=== PATIENT | female | born 1950 | race Caucasian/White ===

== ENCOUNTER 2018-04-01 09:07 | Day surgery (SDC) | payer MEDICARE, OTHER ==
[~2018-04-01] VITALS: Ht 172.7 cm; Wt 96.6 kg
[~2018-04-01 09:07] MED LIST: ALPR.5 PO; ASPI81EC PO; CARI350; CARI350 PO; CRUTCH3 USE; CYCL10 PO; DICY20 PO; FOLI1 PO; FURO20 PO; HYDACE5 PO; HYDPAM25 PO; HYDPAM50 PO; IBUHYD PO; IBUP800; METTREX2.5 PO; NAPR500 PO; POTASSIUM CHLORIDE PO; PREG50 PO; PROACE100; PROM25 PO; Prilosec Otc20 MG PO; RXHYDACE PO; SPIR25 PO; VICOPROFEN PO; Zanaflex4 M1 PO
[2018-04-01] MEDS ORDERED: Norco 7.5-3251 EACH PO (09:59)
[2018-04-02 04:01] LABS: BASOPHILS ABSOLUTE AUTO 0.02 K/mm3 (0.00-0.23); BASOPHILS PERCENT AUTO 0 % (0-2); EOSINOPHILS PERCENT AUTO 0 % (0-6); Hematocrit 31.6 % (33.0-51.0); Hemoglobin 10.5 g/dL (11.5-16.0); IMMATURE GRAN ABSOLUTE AUTO 0.13 K/mm3 (0.00-0.10); IMMATURE GRAN PERCENT AUTO 1 % (0-1); LYMPHOCYTES ABSOLUTE AUTO 0.92 K/mm3 (0.84-5.20); LYMPHOCYTES PERCENT AUTO 5 % (21-46); MONOCYTES ABSOLUTE AUTO 0.84 K/mm3 (0.16-1.47); MONOCYTES PERCENT AUTO 5 % (4-13); Mean Corpuscular HGB 32.4 pg (26.0-34.0); Mean Corpuscular HGB Conc 33.2 g/dL (31.5-36.5); Mean Corpuscular Volume 98 fL (80-100); Mean Platelet Volume 9.9 fL (9.1-12.4); NEUTROPHILS ABSOLUTE AUTO 16.33 K/mm3 (1.96-9.15); NEUTROPHILS PERCENT AUTO 90 % (41-73); Platelet Count 240 K/mm3 (150-400); RDW Coefficient Variation 12.2 % (11.7-14.2); RDW Standard Deviation 43.8 fL (35.1-46.3); Red Blood Cell Count 3.24 M/mm3 (3.80-5.20); White Blood Cell Count 18.24 K/mm3 (4.00-11.30)
[2018-04-02 04:19] LABS: Anion Gap 9 mmol/L (6-16); Blood Urea Nitrogen 18 mg/dL (8-24); Bun/Creatinine Ratio 19.7 (12.0-20.0); CO2, Blood 26 mmol/L (21-32); Calcium, Blood 8.1 mg/dL (8.5-10.1); Chloride, Blood 104 mmol/L (98-108); Creatinine, Blood 0.91 mg/dL (0.40-1.00); Glomerular Filtration Rate >60 (60-); Glucose, Blood 142 mg/dL (70-99); Potassium, Blood 4.3 mmol/L (3.5-5.5); Sodium, Blood 139 mmol/L (136-145)
[2018-04-02] MEDS ORDERED: Percocet 5-3251 EACH PO (12:47)
[2018-04-02] MEDS ORDERED: ASPI325EC PO (12:49)
== END 2018-04-02 13:15 | disposition home or self-care (01) ==
LOC: ORSCMMR 09:07 → ORD 10:30 → ORSCMMR 10:30 → SURS 14:31 → ORSCMMR 04-02 13:15
PROVIDERS: Orthopaedic Surgery
PROC: 0SRD0JA Replacement of Left Knee Joint with Synthetic Substitute, Uncemented, Open Approach (ICD-10-PCS; principal; 2018-04-01 10:30)
DX: M17.12 Unilateral primary osteoarthritis, left knee (principal); Z23 Encounter for immunization; Z79.899 Other long term (current) drug therapy
CPT/HCPCS: 36415; 73560-LT; 80048; 85025; 86850; 86900; 86901; 88300; 90686; 97110; 97116; 97161; 97530; C1776; G0008; G8978; G8979; J0171; J0690; J0735; J1100; J1885; J2250; J2405; J2795; J7120; Q0163

== ENCOUNTER 2018-07-02 06:06 | Day surgery (SDC) | payer OTHER ==
[~2018-07-02] VITALS: Ht 172.7 cm; Wt 93.7 kg
[~2018-07-02 06:06] MED LIST changes: +ASPI325EC PO; +Clonazepam0.5 MG PO; +Cranberry400 MG PO; +Evening Primro500 M1 PO; +FISH OIL 1,0001 EAC1 PO; +Norco 7.5-3251 EACH PO; +Omeprazole20 M1 PO; +Percocet 5-3251 EACH PO
[2018-07-02] MEDS ORDERED: ESTR2 PO (06:53)
[2018-07-02] MEDS ORDERED: FURO20 (06:53)
[2018-07-02] MEDS ORDERED: POTCHL20ER (06:53)
[2018-07-02] MEDS ORDERED: SPIR25 (06:53)
[2018-07-02] MEDS ORDERED: HYDR1TAB94 (06:54)
[2018-07-02] MEDS ORDERED: Zanaflex2 M1 (06:54)
--- NOTE | 2018-07-02 06:59 | NUR ---
07/02/18 0659 Radha Valdovinos PATIENT C/O PAIN IN LEFT KNEE WHERE SHE HAD RECENT KNEE REPLACEMENT A PILLOW WAS PLACED UNDER KNEES FOR COMFORT
--- NOTE | 2018-07-02 09:29 | NUR ---
07/02/18 0929 Radha Atkinson AWAKE ALERT RESP UNLABORED, MED FENTANYL 25 MCG X 2 FOR FOOT PAIN
== END 2018-07-02 10:15 | disposition home or self-care (01) ==
LOC: ORSCSDS 06:06
PROVIDERS: Podiatrist Foot & Ankle Surgery
PROC: 0L8V0ZZ Division of Right Foot Tendon, Open Approach (ICD-10-PCS; principal; 2018-07-02 07:30)
PROC: 0QSN04Z Reposition Right Metatarsal with Internal Fixation Device, Open Approach (ICD-10-PCS; principal; 2018-07-02 07:30)
DX: M20.41 Other hammer toe(s) (acquired), right foot (principal); M20.61 Acquired deformities of toe(s), unspecified, right foot; I10 Essential (primary) hypertension; E03.9 Hypothyroidism, unspecified; Z79.899 Other long term (current) drug therapy
CPT/HCPCS: C1713; C1769; J0690; J1100; J1885; J2250; J2405; J3010; J7120

== ENCOUNTER 2018-10-22 08:06 | Day surgery (SDC) | payer OTHER ==
[~2018-10-22] VITALS: Ht 172.7 cm; Wt 93.9 kg
[~2018-10-22 08:06] MED LIST changes: +ESTR2 PO; +FURO20; +HYDR1TAB94; +POTCHL20ER; +SPIR25; +Zanaflex2 M1
== END 2018-10-22 11:31 | disposition home or self-care (01) ==
LOC: ORSCSDS 08:06
PROVIDERS: Podiatrist Foot & Ankle Surgery
PROC: 0SGQ04Z Fusion of Left Toe Phalangeal Joint with Internal Fixation Device, Open Approach (ICD-10-PCS; principal; 2018-10-22 10:00)
PROC: 0QSR04Z Reposition Left Toe Phalanx with Internal Fixation Device, Open Approach (ICD-10-PCS; principal; 2018-10-22 10:00)
PROC: 0SQN0ZZ Repair Left Metatarsal-Phalangeal Joint, Open Approach (ICD-10-PCS; principal; 2018-10-22 10:00)
PROC: 0QSP04Z Reposition Left Metatarsal with Internal Fixation Device, Open Approach (ICD-10-PCS; principal; 2018-10-22 10:00)
DX: M20.42 Other hammer toe(s) (acquired), left foot (principal); M21.612 Bunion of left foot; M21.6X2 Other acquired deformities of left foot; I10 Essential (primary) hypertension; E78.5 Hyperlipidemia, unspecified; Z79.899 Other long term (current) drug therapy
CPT/HCPCS: C1713; J0690; J1100; J1885; J2250; J2405; J2704; J3010; J7120

== ENCOUNTER 2024-01-20 08:11 | Day surgery (SDC) | payer OTHER ==
[2024-01-20] VITALS (9 sets, daily range): BP systolic 133–152; BP diastolic 68–84
[~2024-01-20] VITALS: Ht 167.6 cm; Wt 84.5 kg
[~2024-01-20 08:11] MED LIST changes: +Ativan1 MG PO; +B-12 COMPL1000 MCG/2 IM; +BUSP10 PO; +CeFAZolin Sodium 2,000 MG in NS 100 ML IV SCH; +EVENING PRIMR1300 MG; -Evening Primro500 M1 PO; +HYDSUL200 PO; +MELATONIN5 M1; +METO2.5; +MIRALAX17 GM PO; +NS 500 ML IV SCH; +Norco 7.5-3251 EACH; +TIZA4 PO
[2024-01-20] MEDS ORDERED: propofoL 20 ML IV ONE (09:12)
[2024-01-20] MEDS ORDERED: Bupivacaine 0.5% HCl 5 MG/ML 30MLVIAL ONE (09:32)
[2024-01-20] MEDS ORDERED: Ondansetron HCl 2 MG / ML 2ML Vial ONE (10:05)
[2024-01-20] MEDS ORDERED: Metoclopramide HCl 5MG / ML 2ML Vial ONE (10:05)
[2024-01-20] MEDS ORDERED: Dexamethasone Sod Phos 10 MG/ML 1ML VIAL ONE (10:05)
[2024-01-20] MEDS ORDERED: FentaNYL Citrate 50 MCG/ML 2 ML Injection ONE (10:06)
[2024-01-20] MEDS ORDERED: OxyCODONE 5 mg/Acetamin 325 mg TABLET PO PRN (10:55)
--- NOTE | 2024-01-20 11:57 | NUR ---
Discharge instructions reviewed with patient. Patient verbalizes understanding. Copy given to patient to take home. Mediport access materials placed in discharge folder. Dressings c/d/i. [facility] Pt wheeled from day surgery to consult room with care management. Patient States Post-Procedure ride home has been arranged. Discharged via wheelchair to private car for ride home.
== END 2024-01-20 11:55 | disposition home or self-care (01) ==
LOC: ORSCMMR 08:11 → ORD 09:45 → ORSCMMR 11:55
PROVIDERS: Surgery
PROC: 05HM33Z Insertion of Infusion Device into Right Internal Jugular Vein, Percutaneous Approach (ICD-10-PCS; principal; 2024-01-20 09:45)
PROC: B543ZZA Ultrasonography of Right Jugular Veins, Guidance (ICD-10-PCS; principal; 2024-01-20 09:45)
PROC: 0JH63WZ Insertion of Totally Implantable Vascular Access Device into Chest Subcutaneous Tissue and Fascia, Percutaneous Approach (ICD-10-PCS; principal; 2024-01-20 09:45)
DX: C80.0 Disseminated malignant neoplasm, unspecified (principal); K21.9 Gastro-esophageal reflux disease without esophagitis; J45.909 Unspecified asthma, uncomplicated; Z79.899 Other long term (current) drug therapy
CPT/HCPCS: 77001; A9270; C1788; J0690; J1100; J1642; J2405; J2704; J2765; J3010; J7040

== ENCOUNTER 2024-01-25 17:21 | Inpatient (IN) | payer OTHER ==
[~2024-01-25] VITALS: Ht 165.1 cm; Wt 86.0 kg
[~2024-01-25 17:21] MED LIST changes: -CeFAZolin Sodium 2,000 MG in NS 100 ML IV SCH; -NS 500 ML IV SCH
[2024-01-25] MEDS ORDERED: NS 1,000 ML IV ONE (17:30)
[2024-01-25] MEDS ORDERED: Ondansetron HCl 2 MG / ML 2ML Vial IV PRN (17:35)
[2024-01-25] MEDS ORDERED: HYDROmorphone HCl/Pf 1MG SYR IV ONE ×2 (18:10→23:05)
[2024-01-25 18:30] LABS: Albumin, Blood 3.1 g/dL (3.4-5.0); Albumin/Globulin Ratio 0.9 (0.8-1.8); Bilirubin, Total 3.5 mg/dL (0.1-1.0); Bun/Creatinine Ratio 15.6 (12.0-20.0); Calcium, Blood 8.8 mg/dL (8.5-10.1); Creatinine, Blood 1.41 mg/dL (0.40-1.00); Globulin, Blood 3.6 g/dL (2.2-4.0); Potassium, Blood 5.1 mmol/L (3.5-5.5); Total Protein, Blood 6.7 g/dL (6.4-8.2)
[2024-01-25] MEDS ORDERED: Mag Hydrox/AL Hydrox/Simeth 30 ML UDC PO ONE (19:00)
[2024-01-25 19:25] LABS: BASOPHILS ABSOLUTE AUTO 0.01 K/mm3 (0.00-0.23); BASOPHILS PERCENT AUTO 1 % (0-2); EOSINOPHILS ABSOLUTE AUTO 0.01 K/mm3 (0.00-0.68); EOSINOPHILS PERCENT AUTO 1 % (0-6); Hematocrit 35.6 % (33.0-51.0); Hemoglobin 11.2 g/dL (11.5-16.0); IMMATURE GRAN ABSOLUTE AUTO 0.01 K/mm3 (0.00-0.10); IMMATURE GRAN PERCENT AUTO 1 % (0-1); LYMPHOCYTES PERCENT AUTO 51 % (21-46); MONOCYTES PERCENT AUTO 29 % (4-13); Mean Corpuscular HGB 29.6 pg (26.0-34.0); Mean Corpuscular HGB Conc 31.5 g/dL (31.5-36.5); Mean Corpuscular Volume 94 fL (80-100); Mean Platelet Volume 10.2 fL (9.1-12.4); NEUTROPHILS ABSOLUTE AUTO 0.24 K/mm3 (1.96-9.15); NEUTROPHILS PERCENT AUTO 18 % (41-73); Platelet Count 177 K/mm3 (150-400); RDW Coefficient Variation 14.3 % (11.7-14.2); Red Blood Cell Count 3.78 M/mm3 (3.80-5.20); White Blood Cell Count 1.37 K/mm3 (4.00-11.30)
[2024-01-25] MEDS ORDERED: ALPRAZOLAM110 PO (19:30)
[2024-01-25] MEDS ORDERED: OXYC5 (19:31)
[2024-01-25] MEDS ORDERED: TIZA4 PO (19:31)
[2024-01-25 19:43] LABS: International Normalized Ratio 1.03
[2024-01-25] MEDS ORDERED: DEXA4 PO (20:42)
[2024-01-26] MEDS ORDERED: FLU VACC TS2024-25(6MOS UP)/PF 45 MCG/0.5 ML SYRINGE IM ONE (00:15)
[2024-01-26] MEDS ORDERED: Ondansetron HCl 2 MG / ML 2ML Vial IV PRN (00:15)
[2024-01-26] MEDS ORDERED: NS 1,000 ML IV ONE (00:15)
[2024-01-26] MEDS ORDERED: FentaNYL Citrate 50 MCG/ML 2 ML Injection IV PRN (00:15)
[2024-01-26] MEDS ORDERED: Ondansetron Odt8 MG MM (00:46)
[2024-01-26] MEDS ORDERED: METO2.5 PO (00:47)
[2024-01-26 01:20] VITALS: BP 152/79
[2024-01-26] MEDS ORDERED: Lactulose 200 GM/300 ML Enema 300ML BTL PR PRN (04:35)
[2024-01-26] MEDS ORDERED: Bisacodyl 10 MG Supp PR PRN (04:35)
[2024-01-26] MEDS ORDERED: HYDROmorphone HCl/Pf 1MG SYR IV ONE (04:40)
[2024-01-26 04:50] VITALS: BP 143/78
[2024-01-26 06:10] LABS: BASOPHILS ABSOLUTE AUTO 0.01 K/mm3 (0.00-0.23); BASOPHILS PERCENT AUTO 1 % (0-2); EOSINOPHILS ABSOLUTE AUTO 0.02 K/mm3 (0.00-0.68); EOSINOPHILS PERCENT AUTO 1 % (0-6); Hematocrit 32.8 % (33.0-51.0); Hemoglobin 10.5 g/dL (11.5-16.0); IMMATURE GRAN PERCENT AUTO 0 % (0-1); LYMPHOCYTES ABSOLUTE AUTO 0.64 K/mm3 (0.84-5.20); LYMPHOCYTES PERCENT AUTO 44 % (21-46); MONOCYTES ABSOLUTE AUTO 0.47 K/mm3 (0.16-1.47); MONOCYTES PERCENT AUTO 32 % (4-13); Mean Corpuscular HGB 29.4 pg (26.0-34.0); Mean Corpuscular Volume 92 fL (80-100); Mean Platelet Volume 11.1 fL (9.1-12.4); NEUTROPHILS ABSOLUTE AUTO 0.32 K/mm3 (1.96-9.15); NEUTROPHILS PERCENT AUTO 22 % (41-73); Platelet Count 160 K/mm3 (150-400); RDW Coefficient Variation 14.1 % (11.7-14.2); RDW Standard Deviation 47.1 fL (35.1-46.3); Red Blood Cell Count 3.57 M/mm3 (3.80-5.20); White Blood Cell Count 1.46 K/mm3 (4.00-11.30)
[2024-01-26 06:32] LABS: Albumin, Blood 2.8 g/dL (3.4-5.0); Albumin/Globulin Ratio 0.9 (0.8-1.8); Bilirubin, Total 2.8 mg/dL (0.1-1.0); Bun/Creatinine Ratio 16.5 (12.0-20.0); Calcium, Blood 9.2 mg/dL (8.5-10.1); Creatinine, Blood 1.27 mg/dL (0.40-1.00); Total Protein, Blood 5.8 g/dL (6.4-8.2)
--- NOTE | 2024-01-26 06:33 | NUR ---
Shift Summary Pt admitted to this from from ED for bowel obstruction. She reportedly has not had a BM in over 1 week and has hand N/V for the past few days. Her last episode of emesis was 01/24 in the AM, she describes it is clear in color. Her belly is distended at tight, it is somewhat tender in the RUQ. She has been medicated for pain and nausea since arriving, although her chronic back pain is far worse than her abdominal pain this AM. I called the hospitalist and got a one time order of 0.5 mg dilauded this AM. She has been NPO since arrival. No consults are ordered at this time. Pt is AOX4, 1 SBA to the BR, on tele running sinus rythm. Her skin is mildly jaundiced and her liver labs are elevated. Pt has stage 4 ovarian cancer and is rcving chemo treatment outpt. She has a recent hx of SC from 01/08.
[2024-01-26 07:06] LABS: BASOPHILS PERCENT MAN 0 % (0-2); EOSINOPHILS PERCENT MAN 0 % (0-6); LYMPHOCYTES ABSOLUTE MAN 0.64 K/mm3 (0.84-5.20); LYMPHOCYTES PERCENT MAN 44 % (21-46); MONOCYTES ABSOLUTE MAN 0.48 K/mm3 (0.16-1.47); MONOCYTES PERCENT MAN 33 % (4-13); NEUTROPHILS ABSOLUTE MAN 0.33 K/mm3 (1.96-9.15); SEG NEUTROPHILS PERCENT MAN 23 % (41-73); TOTAL CELLS COUNTED 100
[2024-01-26 07:12] VITALS: BP 163/82
[2024-01-26] MEDS ORDERED: Enoxaparin 40 MG/0.4 ML SYR SC SCH (09:00)
[2024-01-26] MEDS ORDERED: HYDROmorphone HCl/Pf 1MG SYR IV PRN (11:10)
[2024-01-26] MEDS ORDERED: Magnesium Citrate 300 ML BTL PO ONE (14:15)
[2024-01-26] MEDS ORDERED: NORTRIPTYLINE H2512 PO (15:00)
[2024-01-26 16:05] VITALS: BP 167/91
[2024-01-26] MEDS ORDERED: Sod Phosphate/Sod Biphosphate 132 ML BTL PR PRN (16:10)
[2024-01-26] MEDS ORDERED: Metoclopramide HCl 5MG / ML 2ML Vial IV PRN (16:15)
[2024-01-26] MEDS ORDERED: NS 1,000 ML IV SCH (17:00)
[2024-01-26 19:55] VITALS: BP 161/85
[2024-01-26] MEDS ORDERED: Calcium Carbonate 500 MG Tab Chew PO PRN (19:55)
[2024-01-26] MEDS ORDERED: Lidocaine 4% 1 Patch TOP SCH (22:55)
[2024-01-27 03:28] VITALS: BP 164/86
[2024-01-27 05:02] LABS: BASOPHILS ABSOLUTE AUTO 0.01 K/mm3 (0.00-0.23); BASOPHILS PERCENT AUTO 1 % (0-2); EOSINOPHILS ABSOLUTE AUTO 0.01 K/mm3 (0.00-0.68); EOSINOPHILS PERCENT AUTO 1 % (0-6); Hematocrit 35.1 % (33.0-51.0); Hemoglobin 11.7 g/dL (11.5-16.0); IMMATURE GRAN PERCENT AUTO 0 % (0-1); LYMPHOCYTES ABSOLUTE AUTO 0.56 K/mm3 (0.84-5.20); LYMPHOCYTES PERCENT AUTO 32 % (21-46); MONOCYTES ABSOLUTE AUTO 0.72 K/mm3 (0.16-1.47); MONOCYTES PERCENT AUTO 41 % (4-13); Mean Corpuscular HGB 30.1 pg (26.0-34.0); Mean Corpuscular HGB Conc 33.3 g/dL (31.5-36.5); Mean Corpuscular Volume 90 fL (80-100); Mean Platelet Volume 10.3 fL (9.1-12.4); NEUTROPHILS ABSOLUTE AUTO 0.46 K/mm3 (1.96-9.15); NEUTROPHILS PERCENT AUTO 26 % (41-73); Platelet Count 242 K/mm3 (150-400); RDW Coefficient Variation 14.5 % (11.7-14.2); RDW Standard Deviation 46.2 fL (35.1-46.3); Red Blood Cell Count 3.89 M/mm3 (3.80-5.20); White Blood Cell Count 1.76 K/mm3 (4.00-11.30)
[2024-01-27 05:24] LABS: Albumin, Blood 2.7 g/dL (3.4-5.0); Albumin/Globulin Ratio 0.8 (0.8-1.8); Bilirubin, Total 2.5 mg/dL (0.1-1.0); Calcium, Blood 9.1 mg/dL (8.5-10.1); Creatinine, Blood 0.86 mg/dL (0.40-1.00); Globulin, Blood 3.4 g/dL (2.2-4.0); Potassium, Blood 3.7 mmol/L (3.5-5.5); Total Protein, Blood 6.1 g/dL (6.4-8.2)
[2024-01-27 06:14] VITALS: BP 157/84
--- NOTE | 2024-01-27 06:31 | NUR ---
Shift Summary Pt had a fleet enema early in the shift and immediatly produced a large bowel movement. Pt also had a small-medium sized bowel movement this AM. This ends her 7+ day run of constipation. She has very painful chronic back pain, frequently medicated per emar. Tried repositioning and offered heating pad as well. Her BP was been elevated since yesterday morning around 162/85. Pt is still NPO and experiencing some nausea. Medicated per EMAR. She also had heartburn and rcvd Tums x1.
[2024-01-27 07:24] VITALS: BP 151/94
--- NOTE | 2024-01-27 10:33 | NUR ---
Spiritual Care Visit. Pt. is awake in bed when she welcomes my visit. Pt. is unsettled by the pain she is experiencing. Pt. verbalizes questions about whether she wants to continue with chemotherapy when she is discharged. Listen with empathy and a calming presence. Pt. is known to this cath lab technologist form the community. Consider matters of aguilar and hope. Pt. displayed evidence of awareness and engagement. The Pts. trademark "sense of humor" seemed to be absent. Prayed with Pt. 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 Pt. verbalized gratitude for the spiritual care visit. Will remain availble tothe Pt.
--- NOTE | 2024-01-27 13:01 | NUR ---
Met with pt and her daughters Pearl and Merlene. The patient reports her pain started back in Feb 2023. However, she was preoccupied at that time with her 's cancer diagnosis, hospice and subsequent in July 2023. She continued to have pain, but didn't address it for several more months until she finally had a biopsy and was diagnosed with cancer on Jan 06, 2024. She reports she began chemo 2 weeks ago, and is currently hospitalized with constipation, abdominal pain, PADMINI, elevated liver enzymes and dehydration. We discussed options, including continuing chemotherapy, but patient v/u that this is not curative at this point. She states she is seriously leaning toward comfort, and going home with hospice. However, she tells her daughters she wants to make sure they're ok with her choice. They are going to talk a while longer today, then make a decision.
[2024-01-27] MEDS ORDERED: HYDROmorphone HCl/Pf 1MG SYR IV PRN (13:50)
[2024-01-27 15:54] VITALS: BP 155/82
--- NOTE | 2024-01-27 18:36 | NUR ---
SHIFT SUMMARY PATIENT ALERT AND INTERACTIVE. PATIENT HAD MULTIPLE BOWEL MOVEMENTS TODAY. PATIENT UP IN CHAIR MOST OF THE DAY. PATIENT SPOKE WITH PALLIATIVE CARE. PATIENT VERBALIZING THAT SHE WILL TRANSITION TO HOSPICE BUT WANTED TO GIVE DAUGHTERS A CHANGE TO PROCESS. PATIENT CONTINUES TO BE MEDICATED FOR PAIN NEEDED.
[2024-01-27 19:23] VITALS: BP 167/93
[2024-01-28 05:46] VITALS: BP 144/78
--- NOTE | 2024-01-28 06:55 | NUR ---
SHIFT SUMMARY PT A&Ox4 AND PLEASANT. PT C/O BACK AND ABD PAIN T/O NIGHT. MEDICATED PER EMAR WITH GOOD EFFECT. PT DID HAVE ONE EPISODE OF SMALL EMESIS AFTER DRINKING BROTH. NS INFUSING AT 125ML/HR. FAMILY AT BEDSIDE AT START OF SHIFT. NO EVENTS ON TELE. VSS. BED IN LOWEST POSITION AND CALL LIGHT IN REACH.
[2024-01-28 07:31] VITALS: BP 152/73
[2024-01-28] MEDS ORDERED: FentaNYL Citrate 50 MCG/ML 2 ML Injection IV PRN (09:45)
[2024-01-28] MEDS ORDERED: HYDROmorphone HCl/Pf 1MG SYR IV PRN (12:05)
[2024-01-28] MEDS ORDERED: Promethazine HCl 25 MG Tab PO PRN ×2 (12:05→13:05)
[2024-01-28] MEDS ORDERED: Dexamethasone Sodium Phosphate 4 MG/ML 1ML Vial IV ONE (12:55)
--- NOTE | 2024-01-28 12:59 | NUR ---
MORNING VISIT @ [facility]0 ATTEMPTED GOALS OF CARE CONVERSATION. JUJU WAS NAUSEATED AND ASKED THIS PC RN TO COME BACK LATER. IN AN ATTEMPT TO LESSEN NAUSEA, PROVIDED MINT TEA FOR SIPPING AND AN ALCOHOL PAD TO SNIFF. REPORTED NAUSEA TO PRIMARY RN FOR ANTIEMETIC ADMINISTRATION. VISIT @ 1045 PT REPORST NAUSEA HAS SLIGHTLY IMPROVED. HOWEVER, NAUSEA HAS NOT RESOLVED. PT DECLINES ANY ADDITIONAL INTERVENTIONS AT THIS TIME. AROUND NOON, RCV'D CALL FROM PRIMARY RN, WHOM REPORTS NAUSEA HAS NOT IMPROVED AND NOW WITH GREEN/BILE EMESIS. THIS PC RN PHONED PHARMACY, COLLABORATED WITH NIKOS KIRBY ON MEDICATION INTERVENTIONS RE: PHARMACIST RECOMMENDATIONS FOR N/V SYMPTOM MANAGEMENT. NIKSO KIRBY, RECOMMENDED ONE TIME DOSE OF 4-20 MG DEXAMETHAZONE AND ADDING SCOPOLAMINE PATCH (24 HRS TO REACH PEAK ABSORPTION). RCV'D ORDERS FROM PROVIDER FOR 4 MG DEXAMETHASONE, ONE TIME AND SCOPOLAMINE PATCH NOW. ORDERS PLACED ACCORDINGLY. MET WITH PT TO REVIEW MEDICATIONS AND SYMPTOMS. PT VOICED SHE WOULD LIKE TO START ON COMFORT CARE NOW. PT ALSO GAVE PERMISSION FOR THIS PC RN TO CONTACT HER DTR'S WITH AN UPDATE ON PT'S DECISION TO FOCUS ON COMFORT AND HOSPICE. PROVIDER TO PLACE COMFORT CARE ORDERS. PT ASKED THIS PC RN TO UPDATE HER DTR SHAYNE WITH PT'S DECESION WITH COMFORT CARE AND GO HOME WITH HOSPICE. CALL PLACED TO SHAYNE, UPDATED PER PT REQUEST. SHAYNE IS PREPARING THE HOME FOR PT TO START HOSPICE. PT NOR FAMILY HAVE AN HOSPICE AGENCY PREFFERENCE. GENTLE EDUCATION RE: HOSPICE AND SERVICES PROVIDED. SHAYNE EXPRESSED GRATITUDE FOR THE CARE SHE IS CURRENTLY RECEIVING. DTSHAYNE Jefferson) [phone] LIVES LOCALLY [facility] [phone] LIVES OUT OF STATE DTKALYAN Jefferson (TRAINS DISPATCHER SUPERVISOR) UPDATES PROVIDED TO PRIMARY RN, PERSONAL DRIVER, BATCH MIXER
[2024-01-28] MEDS ORDERED: Scopolamine Hydrobromide Patch TD SCH (13:00)
[2024-01-28] MEDS ORDERED: LORazepam 1 MG Tab PO PRN (13:00)
[2024-01-28] MEDS ORDERED: Morphine Sulfate 20 MG/1ML 1 ML Oral Syringe SL PRN (13:05)
[2024-01-28] MEDS ORDERED: Promethazine HCl 25 MG Supp PR PRN (13:05)
[2024-01-28] MEDS ORDERED: Scopolamine Hydrobromide Patch TOP PRN (13:05)
[2024-01-28] MEDS ORDERED: Atropine Sulfate 1% Opth Soln 2ML BTL SL PRN (13:05)
[2024-01-28] MEDS ORDERED: Haloperidol Lactate 2 MG / ML 15ML BTL PO PRN (13:05)
--- NOTE | 2024-01-28 16:59 | NUR ---
Spiritual Care Visit - notice of comfort care Recieved notice that Pt. has made the decision for comfoprt care. Pt. is awake in bed when she welcomed my visit. Pt displayed evidence of being nauseous, and required to use her emesis bag. Pt. verbalized that at this time it would be her desire to be able to go home on hospice. Listen with empathy and a calming presence. Since she felt ill, I prayed for Pt. Pt. verbalized gratitude for the spiritual care visit.
[2024-01-28] MEDS ORDERED: Haloperidol Lactate 2 MG/ML Conc 1ML Dose PO PRN (18:35)
--- NOTE | 2024-01-28 19:02 | NUR ---
SHIFT SUMMARY PT A&OX4. PT ADMITTED DUE TO SBO. PT TRANSITIONED TO COMFORT CARE TODAY. PT HAS HAD NAUSEA AND VOMOITING THROUGHOUT THE LATER PORTION OF SHIFT, NO MEDICATIONS SEEM TO WORK. 5MG OF ROXINOL SEEMS TO BE ADEQUAATE FOR PAIN MANAGEMENT, PER PT STATEMENT. SPOKE TO DOCTOR RUSTY AT 1800. HE RECOMENDED HALDOL FOR NAUSEA. PT HAD PREVIOUSLY REFUSED PHENERGEN SUPP. DUE TO VISITORS PRESENT. FINALLY AGREED AT 1830 AND WAS MEDICATED WITH, SUPP. HALDOL NOT YET GIVEN AND PLACED IN MED DRAWER. SHE AMBULLATES WITH SBA. PT CALLS APPROPRIATE AND CALL LIGHT IN REACH.
--- NOTE | 2024-01-29 03:07 | NUR ---
SHIFT SUMMARY: PT ALERT ORIENTED X 4. REMAINS ON COMFORT CARE WITH POSSIBLE DC TO HOME TODAY WITH HOSPICE. C/O ABD PAIN MULTIPLE EPISODES OF VOMITING AND LOOSE STOOLS. SHE WAS GIVEN ROXANOL, ATIVAN, HALDOL AND PHENERGAN WHICH DOESNT SEEM TO CONTROL THE N/V OR PAIN. SHE AMBULATES AD REGINA TO THE BATHROOM. SHE HAD A HARD TIME TRYING TO SLEEP IN HER BED SO SHE GOT INTO THE CHAIR TO SLEEP. SHES SLEEPING IN HER CHAIR AT THIS TIME.
[2024-01-29] MEDS ORDERED: ATROPINE SULFATE2 M1 SL (10:40)
[2024-01-29] MEDS ORDERED: TUMS500 MG PO (10:42)
[2024-01-29] MEDS ORDERED: HALO2 PO (10:42)
[2024-01-29] MEDS ORDERED: Ativan1 MG PO (10:43)
[2024-01-29] MEDS ORDERED: MORP20L SL (10:45)
[2024-01-29] MEDS ORDERED: ONDA4 PO (10:46)
[2024-01-29] MEDS ORDERED: PHENERGAN25 MG PR (10:47)
[2024-01-29] MEDS ORDERED: PROM25 PO (10:48)
[2024-01-29] MEDS ORDERED: TRANSDERM-SCOP1 EA13 TD (10:49)
--- NOTE | 2024-01-29 13:35 | NUR ---
DISCHARGE SUMMARY. PT DC THIS SHIFT HOME WITH HOSPICE. PT WAS ACCOMPANIED BY HER DAUGHTERS. DC INSTRUCTION WAS GONE OVER WITH PT AND PT DAUGHTERS WHOM ALL STATED UNDERSTANDING. PT WAS TAKING TO PRIVATE VEHICLE VIA WHEELCHAIR BY SEXTON HELPER.
== END 2024-01-29 13:28 | disposition hospice, home (50) | DRG 388 ==
LOC: ER 17:21 → SURS 01-26 00:03 → MEDS 01-26 00:03 → ENPENDDIS 01-29 11:29 → MEDS 01-29 13:28
PROVIDERS: Emergency Medicine; Family Medicine; Student in an Organized Health Care Education/Training Program; ADMIT Internal Medicine
DX: K56.609 Unspecified intestinal obstruction, unspecified as to partial versus complete obstruction (principal); J96.01 Acute respiratory failure with hypoxia; C78.6 Secondary malignant neoplasm of retroperitoneum and peritoneum; N17.9 Acute kidney failure, unspecified; J90 Pleural effusion, not elsewhere classified; C56.9 Malignant neoplasm of unspecified ovary; K59.00 Constipation, unspecified; E86.0 Dehydration; Z66 Do not resuscitate; R74.01 Elevation of levels of liver transaminase levels; E89.0 Postprocedural hypothyroidism; Z51.5 Encounter for palliative care; K83.8 Other specified diseases of biliary tract; M06.9 Rheumatoid arthritis, unspecified; M54.9 Dorsalgia, unspecified; G89.29 Other chronic pain; K21.9 Gastro-esophageal reflux disease without esophagitis; Z79.899 Other long term (current) drug therapy; Z91.048 Other nonmedicinal substance allergy status; Z90.710 Acquired absence of both cervix and uterus; Z98.890 Other specified postprocedural states; Z90.49 Acquired absence of other specified parts of digestive tract; Z90.89 Acquired absence of other organs; Z90.722 Acquired absence of ovaries, bilateral; Z87.891 Personal history of nicotine dependence; Z90.79 Acquired absence of other genital organ(s)
CPT/HCPCS: 36415; 74177; 76705; 80053; 82140; 83690; 83880; 85025; 85610; 85730; 94762; 96361; 96374-59; 96375; 96376; 99285-25; A9270; J1100; J1170; J1650; J2405; J2765; J3010; J7030; Q9967